=== PATIENT | male | born 1940 | race Caucasian/White ===

== ENCOUNTER → 2017-01-31 08:33 | Day surgery (SDC) | payer OTHER ==
--- NOTE | 2017-01-10 21:49 | HP ---
ADMISSION HISTORY AND PHYSICAL: DATE OF ADMISSION: 01/24/17 [facility] ATTENDING SURGEON: Dr. Jose L Giles. CHIEF COMPLAINT: Left inguinal hernia. HISTORY OF PRESENT ILLNESS: This is a 76-year-old morbidly obese male who first noted left inguinal and scrotal hernia following a laparoscopic repair of a recurrent right inguinal hernia. He states that the initial swelling postoperatively did decline somewhat, but has been present to some degree since then. It never reduces completely. He has noticed in the past 3 to 4 months some increase in swelling as well as discomfort, though nothing to suggest strangulation. He denies any change in GI or function. He has had some scrotal rash at times related to chafing, which has cleared up with over-the- counter topical agents. He was seen by Dr. Colindres for concern regarding hydrocele and was sent for an ultrasound done on 11/05/16, this showing a moderately large right hydrocele and a large fat-containing left indirect inguinal hernia. The patient has undergone previous open right inguinal herniorrhaphy with mesh in 2003 and then laparoscopic repair of recurrent right inguinal hernia in 2007. He had also undergone prior open umbilical hernia repair and subsequent repair of recurrent umbilical hernia with mesh in 2007. He met with Dr. Giles on 11/13/16, at which time exam confirmed the presence of a large inguinal scrotal hernia on the left. This was not readily reducible, but was nontender. Dr. Giles reviewed the ultrasound and discussed with him the indications for repair, the risks, benefits, and alternatives. He has since been seen by Dr. Luciano who felt that no additional cardiac workup was necessary. He does take Eliquis for a prior episode of atrial fibrillation and he will stop it 3 days prior to surgery, his last dose being on the evening of 01/21/17. There is a plan for potential future hydrocelectomy by Dr. Colindres on the right, though at this point there is no plan to do them concurrently. The patient would like to proceed as scheduled with open repair of left inguinal hernia with mesh with Dr. Giles. PAST MEDICAL HISTORY: 1. Hypertension. 2. Paroxysmal atrial fibrillation (in the setting of urosepsis; he underwent cardioversion in June 2016 and has apparently remained in sinus rhythm since, but chronically anticoagulated for the same). 3. Hyperlipidemia. 4. Morbid obesity. 5. Obstructive sleep apnea (on CPAP). 6. BPH. 7. Depression. 8. Seasonal and environmental allergies. 9. Bilateral lower extremity ulcers (currently healed), apparently related to venostasis. He is status post saphenous vein closure and sclerotherapy on the right, his most recent procedure being within the last few weeks. PREVIOUS SURGERIES: Also include tonsillectomy, pilonidal cystectomy, and the afore-mentioned hernia repairs. The patient reports no anesthesia or bleeding problems. CURRENT MEDICATIONS: 1. Vitamin B12 1000 mcg IM q.4 weeks. 2. Metoprolol succinate ER 50 mg daily. 3. Eliquis 5 mg b.i.d. (to be stopped preoperatively, last dose being the evening of 01/21/17; to be resumed postoperatively at Dr. Giles's directive). 4. Escitalopram 10 mg once daily. 5. Magnesium oxide 400 mg daily. 6. Finasteride 5 mg daily. 7. Probiotic 1 tablet once daily p.r.n. 8. Furosemide 40 mg 1/2 tablet every other day. 9. Klor-Con 10 mEq 2 tablets with Lasix every other day. 10. ProAir HFA 2 puffs every 4 hours as needed (has not used recently). 11. Symbicort 2 puffs b.i.d. (uses as needed and has not required lately). 12. Zyrtec 10 mg once daily p.r.n. ALLERGIES: No known drug allergies. He does list LATEX and ADHESIVE as allergies, though I did not ask him about specific reactions. FAMILY HISTORY: Negative for anesthesia problems, bleeding or clotting disorders. SOCIAL HISTORY: The patient is . 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 He denies use of tobacco. He drinks 2 to 3 alcoholic drinks per month. He denies any other substance use. REVIEW OF SYSTEMS: General: No recent constitutional symptoms or acute illnesses other than noted above. He states that his weight is stable. He has been referred to the dietitian at [facility] for weight loss. Cardiovascular: See attached from Dr. Luciano. Respiratory: Some dyspnea on exertion. No other acute problems reported. GI: No upper GI symptoms reported. No constipation, diarrhea, or blood per rectum. Last colonoscopy within the past 10 years, no interval problems reported. : He is treated for BPH. He was seen recently by Dr. Colindres. Endocrine: No diabetes though his problem list does include impaired fasting glycemia. No history of thyroid dysfunction. PHYSICAL EXAMINATION GENERAL: Well-nourished, well-developed, morbidly obese male in no acute distress. VITAL SIGNS: Height 67.5 inches, weight 268 pounds, BMI 41, blood pressure 116/ 78, pulse 78, respirations 20. HEENT: Pupils equal, round, and reactive. EOMs intact. No conjunctival pallor. Oropharynx: Teeth in good repair. Few missing teeth (he apparently has a partial upper denture, but is not currently using it). NECK: No lymphadenopathy, thyromegaly, or masses. LUNGS: Clear to auscultation. No rales or wheezes. HEART: Regular rate and rhythm. No murmur appreciated. ABDOMEN: There is notable diastasis in the upper abdomen. There are well- healed surgical scars. The abdomen is morbidly obese and therefore exam is limited. The hernia exam is per Dr. Giles as noted in the HPI and not repeated today. Soft, nontender. No palpable masses. EXTREMITIES: No edema, though detailed exam not performed. RECTAL: Not done. BACK: No spinous process or CVA tenderness. NEUROLOGICAL: Grossly intact. SKIN: Warm and dry. No suspicious rashes or lesions noted. Lower extremity is not specifically examined. IMPRESSION: Left inguinal hernia. PLAN: Open repair, left inguinal hernia, with mesh. TEQUILA VILLASENOR CC: Dr. Jose Robb; Dr. Bob Colindres; Dr. Mark Luciano at [facility] or [facility] * [id number]/[facility] #: [id number] [facility]
[~2017-01-31 08:33] MED LIST: Acetaminophen TAB* 325 MG PO PRN; Buffered Lidocaine 1% SYRIN* 3 ML/SYR SYRINGE INTRADERM ONE; Bupivacaine 0.5% W/EPI SDV* 30 ML VIAL ONE; Dexamethasone IV* 4 MG/ML 1 ML (4 MG) ONE; DiMENhydriNATE IV* 50 MG/ML VIAL IV PUSH PRN; EPHEDrine (Pressors)* 50 MG/ML VIAL ONE; Famotidine IV* 10 MG/ML 2 ML (20 mg) ONE; HYDROcodone/ACETAMIN 5-325 MG* 1 TAB ONE; Ketorolac INJ* 30 MG/ML 1 ML VIAL ONE; Levalbuterol 0.63MG/3ML NEB INH PRN; Levalbuterol 1.25MG/0.5ML NEB ONE; Lidocaine 1% INJ* 10 MG/ML 30 ML SDV ONE; Lidocaine 2% PF* 5 ML VIAL ONE; Midazolam* 1 MG/ML 2 ML VIAL (2 MG) ONE; Ondansetron INJ* 2 MG/ML VIAL IV PRN; PROCHLORPERAZINE INJ 5 MG/ML 2 ML VIAL IV PRN; Propofol* 10 MG/ML 20 ML BTL IV PUSH ONE; Rocuronium* 10 MG/ML VIAL ONE; Succinylcholine* 20 MG/ML 10 ML VIAL ONE; ceFAZolin 1 GM in Dextrose (*) 1 GM/50 ML BAG IVPB ONE; ceFAZolin 2 GM PREMIX(*) 2 GM/50 ML BAG IVPB ONE; fentaNYL* 50 MCG/ML 2 ML VIAL (100 MCG VIAL) IV PRN; fentaNYL* 50 MCG/ML 2 ML VIAL (100 MCG VIAL) ONE
[2017-01-31] MEDS: HYDROcodone/ACETAMIN 5-325 MG* 1 TAB PO PRN ×2 (12:56→13:35)
[2017-01-31 14:36] VITALS: BP 116/76
--- NOTE | 2017-02-01 01:16 | OP ---
DATE OF OPERATION: 01/31/17 [facility] DATE OF : 40 SURGEON: Jose L Giles MD MUNITIONS HANDLER SUPERVISOR: Mirtha Mason NP ANESTHESIOLOGIST: Michael Pugh MD ANESTHESIA: General anesthetic, local infiltration by the surgeon. PRE-OP DIAGNOSIS: Left inguinal hernia. POST-OP DIAGNOSIS: Left inguinal hernia. OPERATIVE PROCEDURE: Open repair of left inguinal hernia with mesh. COMPLICATIONS: There were no complications. DRAINS: No drains. PATHOLOGIC SPECIMEN: Omentum. COUNTS: Sponge and instrument counts correct. ESTIMATED BLOOD LOSS: 30 mL. DESCRIPTION OF PROCEDURE: The patient was supine in the operating table. After adequate general anesthetic, compression stockings, Jelly Hugger warmer, and intravenous antibiotics, left groin was clipped and prepped with antiseptic and draped in a sterile fashion. Local infiltrative anesthesia was administered and approximately a 10 cm incision was created, carried down through a very deep adipose layer to the external oblique, which was opened in the direction of its fibers. There was a large hernia sac going down to the scrotum and this was opened and a large amount of omentum was removed. The omentum was at least 4 to 5 cm thick and it was probably 20 x 20 cm worth of omentum down there. It was unable to reduce all of this, so a substantial portion of that was resected with cautery and ligature were appropriate. The hernia was then reduced and a cone mesh plug was placed into the internal ring, sutured there with 2-0 Polysorb. A second piece of mesh was placed over the inguinal floor, sutured at the tubercle, at the transverse abdominis and inguinal ligament. Tails were split, brought around the cord structures, and tacked down laterally. External oblique was closed over the top with 2-0 Polysorb, Mery's with 3-0 Polysorb, and skin with 4-0 Surgipro followed by a sterile dressing. He tolerated the procedure well, was awakened, and brought to Recovery in good condition. NOTE: This procedure was substantially more difficult and time consuming than usual, taking about 3 times normal. CC: Mark Luciano DO; Jose Robb MD; Bob Colindres MD * [id number]/[facility] #: [id number] [facility]
== END | disposition home or self-care (01) ==
LOC: OR 08:33
PROVIDERS: ATTEND Surgery
DX: K40.90 Unilateral inguinal hernia, without obstruction or gangrene, not specified as recurrent (principal); I10 Essential (primary) hypertension; I48.0 Paroxysmal atrial fibrillation; E78.5 Hyperlipidemia, unspecified; G47.33 Obstructive sleep apnea (adult) (pediatric); I25.2 Old myocardial infarction; E66.01 Morbid (severe) obesity due to excess calories
CPT/HCPCS: 88305; A9270-GY; C1781; J0330; J0690; J1100; J1885; J2001; J2250; J2704; J3010

== ENCOUNTER 2017-08-05 16:50 | Emergency (ER) | payer MEDICARE ==
--- NOTE | 2017-08-05 18:07 | ED ---
Skin Complaint - HPI Summary HPI Summary: 77 male presents to ED with complaints of right ankle abrasion that occurred around 4pm. Patient states he is on eliquis and was difficult to get bleeding to stop. Bleeding did stop after applying pressure. However and daughter were concerned for losing too much blood. Denies feeling lightheaded or dizzy. No other complaints. Unsure what he hit his ankle on. Very superficial abrasion , to fragile skin. No other complaints at this time. Taking anticoagulant for A Fib. Denies bruising or difficulty walking. Able to bear weight. No concern for MSK injury. 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 Associated Signs & Symptoms: Negative - Allergy/Home Medications Allergies/Adverse Reactions: Allergies Allergy/AdvReac Type Severity Reaction Status Date / Time Adhesive Tape Allergy Rash And Verified 08/05/17 16:55 Itching Latex Allergy Rash And Verified 08/05/17 16:55 Itching PMH/Surg Hx/FS Hx/Imm Hx Endocrine/Hematology History: Denies: Hx Diabetes, Hx Thyroid Disease Cardiovascular History: Reports: Other Cardiovascular Problems/Disorders - A-FIB , had cardioversion 06/19 Denies: Hx Congestive Heart Failure, Hx Hypertension Respiratory History: Reports: Hx Sleep Apnea Denies: Hx Asthma, Hx Chronic Obstructive Pulmonary Disease (COPD) GI History: Reports: Hx Hiatal Hernia - unsure, not diagnosed Denies: Hx Ulcer History: Reports: Other Problems/Disorders - has had severe kidney infections in the past, last one was spring 2015 Denies: Hx Renal Disease Musculoskeletal History: Reports: Other Musculoskeletal History - C5-6 issue Denies: Hx Arthritis, Hx Osteoporosis Sensory History: Reports: Hx Contacts or Glasses - wears bi-focal Denies: Hx Hearing Aid Opthamlomology History: Reports: Hx Contacts or Glasses - wears bi-focal - Surgical History Surgery Procedure, Year, and Place: Right inguinal hernia 2004,also umbilical repaired x 2,tonsillectomy 1947, excision cyst from base of spine 1957 Hx Anesthesia Reactions: No Infectious Disease History: No Infectious Disease History: Denies: Hx Hepatitis, Hx Human Immunodeficiency Virus (HIV), Traveled Outside the [place] in Last 30 Days - Family History Known Family History: Positive: None - Social History Alcohol Use: Rare Substance Use Type: Reports: None Smoking Status (MU): Never Smoked Tobacco Review of Systems Constitutional: Negative Cardiovascular: Negative Respiratory: Negative Musculoskeletal: Negative Positive: Other - abrasion right ankle All Other Systems Reviewed And Are Negative: Yes Physical Exam Triage Information Reviewed: Yes Vital Signs On Initial Exam: Initial Vitals Temp Pulse Resp BP Pulse Ox 98.1 F 101 18 122/84 97 08/05/17 16:55 08/05/17 16:55 08/05/17 16:55 08/05/17 16:55 08/05/17 16:55 Vital Signs Reviewed: Yes Appearance: Positive: Well-Appearing, No Pain Distress, Well-Nourished Skin: Positive: Warm, Skin Color Reflects Adequate Perfusion, Dry, Other - small .5cm linear superficial epidermal abrasion without bleeding or foreign body noted to medial right ankle/lower leg. rest of skin exam normal without ecchymosis or edema. venous insufficiency noted b/l lower legs, chronic. Negative: Cold, Numb, Cyanosis @, Erythema @ Head/Face: Positive: Normal Head/Face Inspection Eyes: Positive: Conjunctiva Clear ENT: Positive: Hearing grossly normal Neck: Positive: Supple, Nontender Respiratory/Lung Sounds: Positive: Clear to Auscultation, Breath Sounds Present. Negative: Rales, Rhonchi, Wheezes Cardiovascular: Positive: Normal, RRR, Pulses are Symmetrical in both Upper and Lower Extremities - 2+ pedal b/l. Negative: Murmur, Rub Musculoskeletal: Positive: Normal, Strength/ROM Intact Neurological: Positive: Normal, Sensory/Motor Intact, Alert, Oriented to Person Place, Time, NV Bundle Intact Distally, Normal Gait Psychiatric: Positive: Affect/Mood Appropriate - Otho Coma Scale Best Eye Response: 4 - Spontaneous Best Motor Response: 6 - Obeys Commands Best Verbal Response: 5 - Oriented Coma Scale Total: 15 Diagnostics - Vital Signs Vital Signs Temp Pulse Resp BP Pulse Ox 08/05/17 16:55 98.1 F 101 18 122/84 97 - Laboratory Lab Statement: Any lab studies that have been ordered have been reviewed, and results considered in the medical decision making process. Course/Dx - Course Course Of Treatment: abrasions were not currently bleeding while in ED. pressure dressing applied with coband and telfa. no other concerns at this time. asymptomatic and normal vitals. aware of worsening signs and symptoms. continue pressure dressing for 24 hours. triple anitbioitic ointment, keep clean and dry. follow up pcp. - Differential Diagnoses - Skin Complaint Differential Diagnoses: Cellulitis, Contact Dermatitis, Other - abrasion, laceration, contusion - Diagnoses Provider Diagnoses: Abrasion of right ankle Discharge - Discharge Plan Condition: Stable Disposition: HOME Patient Education Materials: Abrasion (ED) Referrals: Jose Robb MD [Primary Care Provider] - Additional Instructions: Keep pressure dressing applied for 24 hours. Then apply triple antibiotic ointment and re-dress if desired. If re-bleeds, apply pressure. Keep clean and dry. Return if any complications. Follow up with PCP.
[2017-08-05 18:22] VITALS: BP 119/86
== END 2017-08-05 18:25 | disposition home or self-care (01) ==
LOC: ED 16:50
DX: S90.511A Abrasion, right ankle, initial encounter (principal); I48.91 Unspecified atrial fibrillation; G47.30 Sleep apnea, unspecified; W22.8XXA Striking against or struck by other objects, initial encounter; Y92.9 Unspecified place or not applicable; Z79.01 Long term (current) use of anticoagulants
CPT/HCPCS: 99281

== ENCOUNTER 2017-11-02 07:12 | Emergency (ER) | payer MEDICARE ==
[2017-11-02 08:30] LABS: ABS Basophils 0 10^3/ul (0-0.2); ABS Eosinophils 0.1 10^3/ul (0-0.6); ABS Lymphocytes 1.5 10^3/ul (1.0-4.8); ABS Monocytes 0.6 10^3/ul (0-0.8); ABS Neutrophils 5.1 10^3/ul (1.5-7.7); ABS Nucleated RBC 0 10^3/ul; Eosinophil % 0.9 % (0-6); Hematocrit 38 % (42-52); Hemoglobin 12.8 g/dl (14.0-18.0); Lymphocyte % 20.5 % (25-47); Mean Corpuscular HGB Conc 34 g/dl (31-36); Mean Corpuscular Hemoglobin 28 pg (27-31); Mean Corpuscular Volume 83 fL (80-94); Mean Platelet Volume 9 um3 (7.4-10.4); Nucleated Red Blood Cells % 0.1; Platelet Count 185 10^3/ul (150-450); Red Blood Count 4.59 10^6/ul (4.0-5.4); Red Cell Distribution Width 16 % (10.5-15); White Blood Count 7.3 10^3/ul (3.5-10.8)
[2017-11-02 08:38] LABS: INR 1.03 (0.77-1.02)
[2017-11-02 10:54] VITALS: BP 131/76
--- NOTE | 2017-11-02 18:21 | ED ---
Jacek Mcgraw Natalie, scribed for Hilton Jeffries MD on 11/02/17 at 0824 . Lower Extremity - HPI Summary HPI Summary: The pt is a 77 y/o M presenting to the ED c/o right ankle bleeding starting last night. The pt states he has been on Eliquis for a year and had drank beer last night, causing the wound to continuously bleed. The bleeding has been resolved since presenting to the ED. [facility]. The pt has had similar episodes in the past few years. He has hx of Afib and has cardioversion in the past. - History of Current Complaint Chief Complaint: EDExtremityLower Stated Complaint: CONTROLLED BLEEDING Time Seen by Provider: 11/02/17 07:53 Hx Obtained From: Patient Onset of Pain: Hours - started last night Onset/Duration: Resolved Severity Initially: Mild Severity Currently: None Pain Intensity: 0 Pain Scale Used: 0-10 Numeric Timing: Lasting Hours Location: Other - right ankle Aggravating Factor(s): Nothing Alleviating Factor(s): Nothing - Allergies/Home Medications Allergies/Adverse Reactions: Allergies Allergy/AdvReac Type Severity Reaction Status Date / Time Adhesive Tape Allergy Rash And Verified 11/02/17 07:34 Itching Latex Allergy Rash And Verified 11/02/17 07:34 Itching PMH/Surg Hx/FS Hx/Imm Hx Previously Healthy: No Endocrine/Hematology History: Denies: Hx Diabetes, Hx Thyroid Disease Cardiovascular History: Reports: Other Cardiovascular Problems/Disorders - A-FIB , had cardioversion 06/19 Denies: Hx Congestive Heart Failure, Hx Hypertension Respiratory History: Reports: Hx Sleep Apnea Denies: Hx Asthma, Hx Chronic Obstructive Pulmonary Disease (COPD) GI History: Reports: Hx Hiatal Hernia - unsure, not diagnosed Denies: Hx Ulcer History: Reports: Other Problems/Disorders - has had severe kidney infections in the past, last one was spring 2015 Denies: Hx Renal Disease Musculoskeletal History: Reports: Other Musculoskeletal History - C5-6 issue Denies: Hx Arthritis, Hx Osteoporosis Sensory History: Reports: Hx Contacts or Glasses - wears bi-focal Denies: Hx Hearing Aid Opthamlomology History: Reports: Hx Contacts or Glasses - wears bi-focal - Surgical History Surgery Procedure, Year, and Place: Right inguinal hernia 2004,also umbilical repaired x 2,tonsillectomy 1947, excision cyst from base of spine 1956 Hx Anesthesia Reactions: No Infectious Disease History: No Infectious Disease History: Denies: Hx Hepatitis, Hx Human Immunodeficiency Virus (HIV), Traveled Outside the [place] in Last 30 Days - Family History Known Family History: Positive: Hypertension, Diabetes Negative: Cardiac Disease - Social History Alcohol Use: Rare Alcohol Amount: 2 beers last night Substance Use Type: Reports: None Smoking Status (MU): Never Smoked Tobacco Review of Systems Negative: Fever Positive: Other - right ankle bleeding All Other Systems Reviewed And Are Negative: Yes Physical Exam - Summary Physical Exam Summary: Appearance: The patient is well-nourished in no acute distress and in no acute pain. Skin: The skin is warm and dry and skin color reflects adequate perfusion. HEENT: The head is normocephalic and atraumatic. The pupils are equal and reactive. The conjunctivae are clear and without drainage. Nares are patent and without drainage. Mouth reveals moist mucous membranes and the throat is without erythema and exudate. The external ears are intact. The ear canals are patent and without drainage. The tympanic membranes are intact. Neck: The neck is supple with full range of motion and non-tender. There are no carotid bruits. There is no neck vein distension. Respiratory: Chest is non-tender. Lungs are clear to auscultation and breath sounds are symmetrical and equal. Cardiovascular: Heart is regular rate and rhythm. There is no murmur or rub auscultated. There is no peripheral edema and pulses are symmetrical and equal. Abdomen: The abdomen is soft and non-tender. There are normal bowel sounds heard in all four quadrants and there is no organomegaly palpated. Musculoskeletal: There is no back tenderness noted. There is no or calf tenderness elicited. Chronic blood stasis changes in BLE. Edema in BLE. There is an open clean ulcer in right medial ankle with small area of bleeding clotted off. Neurological: Patient is alert and oriented to person, place and time. The patient has symmetrical motor strength in all four extremities. Cranial nerves are grossly intact. Deep tendon reflexes are symmetrical and equal in all four extremities. Psychiatric: The patient has an appropriate affect and does not exhibit any anxiety or depression. Triage Information Reviewed: Yes Vital Signs On Initial Exam: Initial Vitals Temp Pulse Resp BP Pulse Ox 97.1 F 101 22 97/67 97 11/02/17 07:16 11/02/17 07:16 11/02/17 07:16 11/02/17 07:16 11/02/17 07:16 Vital Signs Reviewed: Yes - [place] Coma Scale Coma Scale Total: 15 Diagnostics - Vital Signs Vital Signs Temp Pulse Resp BP Pulse Ox 11/02/17 07:32 89 24 116/75 97 11/02/17 07:30 94 20 79/65 98 11/02/17 07:28 90 24 71/40 98 11/02/17 07:19 94 22 98 11/02/17 07:17 97/67 11/02/17 07:16 97.1 F 101 22 97 - Laboratory Lab Results: Lab Results 11/02/17 11/02/17 11/02/17 Range/Units 08:17 08:17 08:17 WBC 7.3 (3.5-10.8) 10^3/ul RBC 4.59 (4.0-5.4) 10^6/ul Hgb 12.8 L (14.0-18.0) g/dl Hct 38 L (42-52) % MCV 83 (80-94) fL MCH 28 (27-31) pg MCHC 34 (31-36) g/dl RDW 16 H (10.5-15) % Plt Count 185 (150-450) 10^3/ul MPV 9 (7.4-10.4) um3 Neut % (Auto) 69.5 (38-83) % Lymph % (Auto) 20.5 L (25-47) % Baker % (Auto) 8.5 (1-9) % Eos % (Auto) 0.9 (0-6) % Baso % (Auto) 0.6 (0-2) % Absolute Neuts (auto) 5.1 (1.5-7.7) 10^3/ul Absolute Lymphs (auto) 1.5 (1.0-4.8) 10^3/ul Absolute Monos (auto) 0.6 (0-0.8) 10^3/ul Absolute Eos (auto) 0.1 (0-0.6) 10^3/ul Absolute Basos (auto) 0 (0-0.2) 10^3/ul Absolute Nucleated RBC 0 10^3/ul Nucleated RBC % 0.1 INR (Anticoag Therapy) 1.03 H (0.77-1.02) APTT 27.8 (26.0-36.3) seconds Sodium 140 (133-145) mmol/L Potassium 4.4 (3.5-5.0) mmol/L Chloride 107 (101-111) mmol/L Carbon Dioxide 27 (22-32) mmol/L Anion Gap 6 (2-11) mmol/L BUN 25 H (6-24) mg/dL Creatinine 1.03 (0.67-1.17) mg/dL Est GFR ( Amer) 90.1 (>60) Est GFR (Non-Af Amer) 70.0 (>60) BUN/Creatinine Ratio 24.3 H (8-20) Glucose 114 H (70-100) mg/dL Calcium 9.2 (8.6-10.3) mg/dL Total Bilirubin 0.40 (0.2-1.0) mg/dL AST 16 (13-39) U/L ALT 16 (7-52) U/L Alkaline Phosphatase 57 (34-104) U/L Total Protein 5.9 L (6.4-8.9) g/dL Albumin 3.2 (3.2-5.2) g/dL Globulin 2.7 (2-4) g/dL Albumin/Globulin Ratio 1.2 (1-3) Result Diagrams: 11/02/17 08:17 12 08:17 Lab Statement: Any lab studies that have been ordered have been reviewed, and results considered in the medical decision making process. - EKG 08:15 Cardiac Rate: NL EKG Rhythm: Atrial Fibrillation - 95 BPM EKG Interpretation: Atrial fib with controlled response. Lower Extremity Course/Dx - Course Course Of Treatment: Mr. Pereira presented after bleeding from his right ankle all night. He has dropped his H&H a little but has had no further bleeding here. I will let him go to F/U with his [facility]. He is on Elliquis for A-Fib and is in A-Fib now. He is not awater of being in A-Fib and will F.U with Dr. Gonzalez for that. - Diagnoses Provider Diagnoses: Bleeding from wound, Atrial fibrillation Discharge - Discharge Plan Condition: Stable Disposition: HOME Referrals: Jose Robb MD [Primary Care Provider] - Mark Luciano DO [Medical Doctor] - 1 Week Additional Instructions: [facility] up with [facility] on [facility]17 as scheduled. Follow up with political analyst Dr. Luciano, next week. Return to the Emergency Department for any new or worsening symptoms. The documentation as recorded by the Jacek ayala Natalie accurately reflects the service I personally performed and the decisions made by , Hilton Jeffries MD.
== END 2017-11-02 10:53 | disposition home or self-care (01) ==
LOC: ED 07:12
DX: I48.91 Unspecified atrial fibrillation (principal); S91.011A Laceration without foreign body, right ankle, initial encounter; X58.XXXA Exposure to other specified factors, initial encounter; Y93.9 Activity, unspecified; Y92.9 Unspecified place or not applicable
CPT/HCPCS: 36415; 80053; 85025; 85610; 85730; 93005; 99283

== ENCOUNTER → 2017-12-09 08:31 | Day surgery (SDC) | payer MEDICARE ==
[~2017-12-09 08:31] MED LIST changes: -Acetaminophen TAB* 325 MG PO PRN; -Buffered Lidocaine 1% SYRIN* 3 ML/SYR SYRINGE INTRADERM ONE; -Bupivacaine 0.5% W/EPI SDV* 30 ML VIAL ONE; -Dexamethasone IV* 4 MG/ML 1 ML (4 MG) ONE; -DiMENhydriNATE IV* 50 MG/ML VIAL IV PUSH PRN; -EPHEDrine (Pressors)* 50 MG/ML VIAL ONE; -Famotidine IV* 10 MG/ML 2 ML (20 mg) ONE; +Flumazenil* 0.1 MG/ML 5 ML MDV ONE; -HYDROcodone/ACETAMIN 5-325 MG* 1 TAB ONE; -Ketorolac INJ* 30 MG/ML 1 ML VIAL ONE; -Levalbuterol 0.63MG/3ML NEB INH PRN; -Levalbuterol 1.25MG/0.5ML NEB ONE; -Lidocaine 1% INJ* 10 MG/ML 30 ML SDV ONE; -Lidocaine 2% PF* 5 ML VIAL ONE; +Midazolam* 1 MG/ML 10 ML VIAL (10 MG) ONE; -Midazolam* 1 MG/ML 2 ML VIAL (2 MG) ONE; +Naloxone* 0.4 MG/ML 1 ML VIAL ONE; -Ondansetron INJ* 2 MG/ML VIAL IV PRN; -PROCHLORPERAZINE INJ 5 MG/ML 2 ML VIAL IV PRN; -Propofol* 10 MG/ML 20 ML BTL IV PUSH ONE; -Rocuronium* 10 MG/ML VIAL ONE; -Succinylcholine* 20 MG/ML 10 ML VIAL ONE; -ceFAZolin 1 GM in Dextrose (*) 1 GM/50 ML BAG IVPB ONE; -ceFAZolin 2 GM PREMIX(*) 2 GM/50 ML BAG IVPB ONE; -fentaNYL* 50 MCG/ML 2 ML VIAL (100 MCG VIAL) IV PRN
[2017-12-09 09:47] LABS: EGFR Non-African American 71.6 (>60)
--- NOTE | 2017-12-09 10:51 | PROCNOTE ---
Cardiology Procedure Note 12/09/2017 External electrical cardioversion Patient with persistent symptoms of atrial fibrillation despite rate control Risks, benefits and alternatives discussed and patient wished to proceed Patient has received OAC for at least a month without interruption so RACHEL not performed 2 mg IV versed, 25 mcg IV sedation used Patient successfully cardioverted from atrial fibrillation to sinus rhythm with PVC's with 200 J external electrical cardioversion x 1 No complications No medication changes Patient will follow up with [facility] 12/09/17 09:00 Mg 1.9
== END | disposition home or self-care (01) ==
LOC: CHICATH 08:31
PROVIDERS: ATTEND Internal Medicine
DX: I48.0 Paroxysmal atrial fibrillation (principal); I49.3 Ventricular premature depolarization; R60.9 Edema, unspecified; R06.00 Dyspnea, unspecified; I71.4 Abdominal aortic aneurysm, without rupture; I10 Essential (primary) hypertension; E66.01 Morbid (severe) obesity due to excess calories; G47.33 Obstructive sleep apnea (adult) (pediatric); E78.2 Mixed hyperlipidemia; I50.9 Heart failure, unspecified
CPT/HCPCS: 36415; 80048; 83735; 92960; 93005; 99156; 99157; J2250; J2310; J3010

== ENCOUNTER 2018-10-08 06:54 | Day surgery (SDC) | payer MEDICARE ==
[~2018-10-08 06:54] MED LIST changes: +Buffered Lidocaine 0.9% SYRIN* 5 ML/SYR SYRINGE INTRADERM ONE; -Flumazenil* 0.1 MG/ML 5 ML MDV ONE; -Midazolam* 1 MG/ML 10 ML VIAL (10 MG) ONE; -Naloxone* 0.4 MG/ML 1 ML VIAL ONE; -fentaNYL* 50 MCG/ML 2 ML VIAL (100 MCG VIAL) ONE
[2018-10-08] MEDS ORDERED: Midazolam* 1 MG/ML 2 ML VIAL (2 MG) ONE (08:44)
[2018-10-08 09:07] VITALS: BP 93/77
[2018-10-08] MEDS ORDERED: Cyclopentolate 1% OPTH.SOL* 2 ML BTL ONE (09:31)
[2018-10-08] MEDS ORDERED: Povidone Iodine 5% OPTH* 30 ML BTL ONE (09:31)
[2018-10-08] MEDS ORDERED: Proparacaine 0.5% OPHTH.SOL* 15 ML BTL ONE (09:31)
[2018-10-08] MEDS ORDERED: Neomycin/Polymy/Dex OPTH.SUSP* MAXITROL 0.1% 5 ML ONE (09:31)
[2018-10-08] MEDS ORDERED: Phenylephrine 2.5% OPTH.SOL* 2 ML BTL ONE (09:31)
[2018-10-08] MEDS ORDERED: Lidocaine 1%* 5 ML VIAL ONE (09:31)
[2018-10-08] MEDS ORDERED: acetaZOLAMIDE TAB* 250 MG ONE (09:31)
[2018-10-08] MEDS ORDERED: Ketorolac 0.5% OPHTH (NF) 0.5 % 5 ML BTL ONE (09:31)
[2018-10-08] MEDS ORDERED: Lidocaine 2% EPI 1:200000 MPF*10-20 ML VIAL ONE (09:31)
--- NOTE | 2018-10-08 11:40 | OP ---
OPERATIVE NOTE: DATE OF OPERATION: 10/08/18 DATE OF : 40 SURGEON: Kalia Barkley M.D. PREOPERATIVE DIAGNOSIS: Cataract, left eye. POSTOPERATIVE DIAGNOSIS: Cataract, left eye OPERATIVE PROCEDURE: Extracapsular cataract extraction with intraocular lens implant left eye. PROCEDURE: The patient was brought to the operating room after being given 1/2% Alcaine with epineph rine drops in the preoperative area. The eye was prepped and draped in the usual sterile fashion. S terile drape and eyelid speculum were placed. Again, topical 1/2% Alcaine with epinephrine was given . A paracentesis incision was made at the 3 o'clock position with the No.75 blade. Clear cornea inc ision 2.2 x 2.2-mm was created at the 6 o'clock position starting at the anterior limbus using the 2. 2-mm keratome. The anterior chamber was irrigated with 0.4 mL of 1% non-preservative intracameral li docaine and filled with DisCoVisc. A capsulorrhexis was completed using the cystotome and the Utrata forceps. Hydrodissection was performed with balanced salt solution. The lens nucleus was removed wi th the Phacoemulsification handpiece without incident. Cortex was removed with the irrigation-aspira tion handpiece. The capsular bag was re-inflated using DisCoVisc and an SN60WF 19.5 implant was inse rted with the shooter. The irrigation-aspiration handpiece was used to remove all residual DisCoVisc . The eye was refilled with balanced salt solution and the wound checked and found to be watertight. Topical Maxitrol drops were given. [id number]/[facility] #: [id number]
== END 2018-10-08 09:11 | disposition home or self-care (01) ==
LOC: OREAST 06:54
PROVIDERS: ATTEND Specialist
DX: H25.12 Age-related nuclear cataract, left eye (principal); I48.91 Unspecified atrial fibrillation; Z79.01 Long term (current) use of anticoagulants; I10 Essential (primary) hypertension; E78.5 Hyperlipidemia, unspecified; G47.33 Obstructive sleep apnea (adult) (pediatric)
CPT/HCPCS: A9270-GY; J2250; V2632

== ENCOUNTER 2018-10-15 09:41 | Day surgery (SDC) | payer MEDICARE ==
[~2018-10-15 09:41] MED LIST changes: +Acetaminophen TAB* 325 MG PO PRN; +Cyclopentolate 1% OPTH.SOL* 2 ML BTL ONE; +Ketorolac 0.5% OPHTH (NF) 0.5 % 5 ML BTL ONE; +Lidocaine 1%* 5 ML VIAL ONE; +Lidocaine 2% EPI 1:200000 MPF*10-20 ML VIAL ONE; +Neomycin/Polymy/Dex OPTH.SUSP* MAXITROL 0.1% 5 ML ONE; +Phenylephrine 2.5% OPTH.SOL* 2 ML BTL ONE; +Povidone Iodine 5% OPTH* 30 ML BTL ONE; +Proparacaine 0.5% OPHTH.SOL* 15 ML BTL ONE; +acetaZOLAMIDE TAB* 250 MG ONE
[2018-10-15] MEDS ORDERED: Midazolam* 1 MG/ML 2 ML VIAL (2 MG) ONE ×3 (12:09→12:31)
[2018-10-15 12:21] VITALS: BP 115/65
--- NOTE | 2018-10-15 13:28 | OP ---
DATE OF OPERATION: 10/15/2018 - [facility] DATE OF : 1940. SURGEON: Kalia Barkley M.D. PREOPERATIVE DIAGNOSIS: Cataract right eye. POSTOPERATIVE DIAGNOSIS: Cataract right eye. OPERATIVE PROCEDURE: Extracapsular cataract extraction with intraocular lens implant right eye. DESCRIPTION OF PROCEDURE: The patient was brought to the operating room after being given 1/2% Alcaine with epinephrine drops in the preoperative area. The eye was prepped and draped in the usual sterile fashion. Sterile drape and eyelid speculum were placed. Again, topical 1/2% Alcaine with epinephrine was given. A paracentesis incision was made at the 9 o'clock position with the No.75 blade. Clear cornea incision 2.2 x 2.2-mm was created at the 12 o'clock position starting at the anterior limbus using the 2.2-mm keratome. The anterior chamber was irrigated with 0.4 mL of 1% non-preservative intracameral lidocaine and filled with DisCoVisc. A capsulorrhexis was completed using the cystotome and the Utrata forceps. Hydrodissection was performed with balanced salt solution. The lens nucleus was removed with the Phacoemulsification handpiece without incident. Cortex was removed with the irrigation-aspiration handpiece. The capsular bag was re-inflated using DisCoVisc and an [id number] 19 implant was inserted with the shooter. The irrigation-aspiration handpiece was used to remove all residual DisCoVisc. The eye was refilled with balanced salt solution and the wound checked and found to be watertight. Topical Maxitrol drops were given. [id number]/[facility] #: [id number] [facility] CENTERPieter
== END 2018-10-15 12:24 | disposition home or self-care (01) ==
LOC: OREAST 09:41
PROVIDERS: ATTEND Specialist
DX: Z01.818 Encounter for other preprocedural examination (principal); H25.11 Age-related nuclear cataract, right eye; H25.813 Combined forms of age-related cataract, bilateral; I10 Essential (primary) hypertension; E53.8 Deficiency of other specified B group vitamins; I48.0 Paroxysmal atrial fibrillation; Z96.1 Presence of intraocular lens
CPT/HCPCS: A9270-GY; J2250; V2632

== ENCOUNTER 2019-08-28 06:23 | Day surgery (SDC) | payer MEDICARE ==
[~2019-08-28 06:23] MED LIST changes: -Acetaminophen TAB* 325 MG PO PRN; -Buffered Lidocaine 0.9% SYRIN* 5 ML/SYR SYRINGE INTRADERM ONE; +Buffered Lidocaine 1% SYRIN* 1 ML/SYRINGE INTRADERM ONE; -Cyclopentolate 1% OPTH.SOL* 2 ML BTL ONE; -Ketorolac 0.5% OPHTH (NF) 0.5 % 5 ML BTL ONE; +Lactated Ringers 1000 ML Bag* 1,000 ML IV SCH; -Lidocaine 1%* 5 ML VIAL ONE; -Lidocaine 2% EPI 1:200000 MPF*10-20 ML VIAL ONE; -Neomycin/Polymy/Dex OPTH.SUSP* MAXITROL 0.1% 5 ML ONE; -Phenylephrine 2.5% OPTH.SOL* 2 ML BTL ONE; -Povidone Iodine 5% OPTH* 30 ML BTL ONE; -Proparacaine 0.5% OPHTH.SOL* 15 ML BTL ONE; -acetaZOLAMIDE TAB* 250 MG ONE
[2019-08-28] MEDS ORDERED: Naloxone* 0.4 MG/ML 1 ML VIAL IV PRN (07:23)
[2019-08-28] MEDS ORDERED: Lidocaine 1% INJ* 10 MG/ML 30 ML SDV ONE (07:25)
[2019-08-28] MEDS ORDERED: Propofol* 10 MG/ML 20 ML BTL ONE (07:31)
[2019-08-28] MEDS ORDERED: Lidocaine 2% PF * 5 ML VIAL ONE (07:31)
[2019-08-28] MEDS ORDERED: fentaNYL* 50 MCG/ML 2 ML VIAL (100 MCG VIAL) ONE (07:32)
[2019-08-28 08:48] VITALS: BP 110/80
--- NOTE | 2019-08-28 12:25 | OP ---
DATE OF OPERATION: 08/28/19 [facility] DATE OF : 40 SURGEON: Nadege Fonseca MD. PLANT QUALITY MANAGER: TEQUILA Khan. ANESTHESIA: Local MAC. PRE-OP DIAGNOSES: 1. Left carpal tunnel syndrome. 2. Left index and long finger trigger fingers. POST-OP DIAGNOSES: 1. Left carpal tunnel syndrome. 2. Left index and long finger trigger fingers. OPERATIVE PROCEDURES: Left carpal tunnel release, and index and middle finger trigger release. ESTIMATED BLOOD LOSS: Zero. TOURNIQUET TIME: Approximately 15 minutes. INDICATIONS FOR PROCEDURE: Markus is a 79-year-old man with triggering of his index and long fingers on the left hand as well as left carpal tunnel syndrome. He presents for release of all of the above. DESCRIPTION OF PROCEDURE: The patient was brought to the operating room, was given a sedation anesthetic and a local infiltration of 10 cc of 1% plain lidocaine in the palm of his left hand overlying the index and middle fingers in the palm of his left hand, also an additional 10 cc of 1% plain lidocaine in the palm of his hand overlying the carpal tunnel. The skin of his left hand and forearm was prepped and draped in the usual sterile fashion. The hand and forearm were exsanguinated and the tourniquet elevated to 250 mmHg. A transverse incision was made centered over the A1 pulleys of the index and middle fingers and we dissected bluntly through the subcutaneous tissue down to the pulleys. They were incised longitudinally completely releasing the flexor tendons, which were in good condition. The wound was irrigated and the skin edges reapproximated with 4-0 nylon suture. Next, a longitudinal incision was made in the palm in line with the ring finger and we dissected through the subcutaneous tissue down to the transverse carpal ligament. The ligament was divided sharply with a knife and then more proximally with the scissors. The nerve was dissected free from the surrounding tissue and there was an area of significant compression at the mid portion of the ligament. There was also abundant synovial fluid in the carpal tunnel. The wounds were copiously irrigated with saline and the skin edges were reapproximated with 4-0 nylon suture. The wounds were dressed with Xeroform, 4x4, Webril, and an Rito wrap. The patient tolerated the procedure well and was brought to the recovery room in good condition. [id number]/[facility] #: [id number] [facility]
== END 2019-08-28 08:20 | disposition home or self-care (01) ==
LOC: OREAST 06:23
PROVIDERS: ATTEND Orthopaedic Surgery
DX: G56.02 Carpal tunnel syndrome, left upper limb (principal); M65.322 Trigger finger, left index finger; M65.332 Trigger finger, left middle finger; I48.91 Unspecified atrial fibrillation; Z79.01 Long term (current) use of anticoagulants; G47.33 Obstructive sleep apnea (adult) (pediatric); E78.5 Hyperlipidemia, unspecified; Z68.38 Body mass index [BMI] 38.0-38.9, adult; I10 Essential (primary) hypertension; R60.9 Edema, unspecified
CPT/HCPCS: J2704; J3010

== ENCOUNTER 2024-09-14 12:16 | Observation (INO) ==
[2024-09-14 18:29] LABS: ABS Eosinophils 0.1 10^3/uL (0.0-0.5); ABS Lymphocytes 0.9 10^3/uL (1.0-4.8); ABS Monocytes 0.8 10^3/uL (0.0-1.1); ABS Neutrophils 6.8 10^3/uL (1.5-7.6); Eosinophil % 0.7 %; Hematocrit 36.8 % (38-53); Hemoglobin 11.9 g/dL (13.2-16.3); Lymphocyte % 10.8 %; Mean Corpuscular Hemoglobin 27.6 pg (27-33); Mean Corpuscular Hgb Conc 32.3 g/dL (31-36); Mean Corpuscular Volume 85.5 fL (80-97); Platelet Count 256 10^3/uL (150-450); Red Blood Count 4.31 10^6/uL (4.06-5.63); Red Cell Distribution Width 16.6 % (12-17); White Blood Count 8.6 10^3/uL (3.6-10.2)
[2024-09-14 19:07] LABS: Albumin 3.4 g/dL (3.2-5.2); C Reactive Protein 203.91 mg/L (<8.01); Calcium 9.3 mg/dL (8.6-10.3); Creatinine, Serum 0.9 mg/dL (0.67-1.17); Globulin 3.3 g/dL (2-4); Potassium 4.3 mmol/L (3.5-5.0); Total Bilirubin 0.8 mg/dL (0.2-1.0); Total Protein 6.7 g/dL (6.4-8.9); eGFR CKD-EPI 84.2 (>60)
[2024-09-14] MEDS: Furosemide 40 mg/4 ml IV VIAL IV SLOW PU ONE (19:37)
[2024-09-14 20:13] LABS: High Sensitivity Troponin 1 Hr 30 pg/mL (<20)
[2024-09-14] MEDS ORDERED: Vancomycin 2,000 MG in NS 0.9% 250 ml 250 ML IVPB SCH (21:00)
[2024-09-14] MEDS: Piperacillin/Tazobac 3.375 BAG 3.375 GM/100 ML BAG IV ONE (23:00)
[2024-09-15] MEDS: Vancomycin 2,000 MG in NS 0.9% 500 ml BAG 500 ML IVPB ONE (00:01)
[2024-09-15] MEDS: Iohexol 300 (CONTRAST) 10 ML SDV IV ONE (03:36)
[2024-09-15] MEDS ORDERED: Vancomycin per Pharmacy 1 EA NOTE FOLLOW UP SCH (07:00)
[2024-09-15] MEDS: metroNIDAZOLE IV 500 MG/100ML 500 MG/100 ML BAG IVPB SCH (07:41)
[2024-09-15] MEDS: Cefepime 2 GM in Dextrose 2 GM/50 ML BAG IV SCH (07:41)
[2024-09-15 10:31] LABS: ABS Eosinophils 0.1 10^3/uL (0.0-0.5); ABS Lymphocytes 1.1 10^3/uL (1.0-4.8); ABS Monocytes 0.8 10^3/uL (0.0-1.1); ABS Neutrophils 5.8 10^3/uL (1.5-7.6); Eosinophil % 0.9 %; Hematocrit 33.7 % (38-53); Hemoglobin 11.2 g/dL (13.2-16.3); Lymphocyte % 13.7 %; Mean Corpuscular Hemoglobin 28.1 pg (27-33); Mean Corpuscular Hgb Conc 33.2 g/dL (31-36); Mean Corpuscular Volume 84.6 fL (80-97); Mean Platelet Volume 7.9 fL (7.5-11.2); Nucleated Red Blood Cells % 0.1 %/100WBC (0.0-0.8); Platelet Count 232 10^3/uL (150-450); Red Blood Count 3.98 10^6/uL (4.06-5.63); Red Cell Distribution Width 16.3 % (12-17); White Blood Count 7.7 10^3/uL (3.6-10.2)
[2024-09-15 11:06] LABS: Calcium 8.8 mg/dL (8.6-10.3); Creatinine, Serum 0.99 mg/dL (0.67-1.17); Magnesium 1.8 mg/dL (1.9-2.7); Potassium 3.8 mmol/L (3.5-5.0); eGFR CKD-EPI 75.1 (>60)
[2024-09-15] MEDS: Vancomycin 1000 MG in NS 0.9% 250 ML IVPB SCH (13:54)
[2024-09-15] MEDS: Magnesium Sulfate 2 gm BAG 2 GM/50 ML BAG IVPB ONE (16:01)
[2024-09-15 16:23] LABS: Urine Appearance Clear; Urine Bilirubin Negative (Negative); Urine Blood Trace (Negative); Urine Color Yellow; Urine Glucose Negative (Negative); Urine Ketones Negative (Negative); Urine Nitrite Negative (Negative); Urine Protein Trace (Negative); Urine Urobilinogen Negative (Negative); Urine pH 5.5 (5.0-8.0)
[2024-09-15 16:30] LABS: Urine Bacteria Absent /HPF (Absent); Urine Red Blood Cell 2+(6-10/hpf) /HPF (0-Trace); Urine White Blood Cell 3+(>20/hpf) /HPF (0-Trace)
[2024-09-15] MEDS: cefTRIAXone 1 gm/50 mL D5W 1 GM/50 ML BAG IV SCH (18:38)
[2024-09-16 06:22] LABS: ABS Eosinophils 0.2 10^3/uL (0.0-0.5); ABS Lymphocytes 1.1 10^3/uL (1.0-4.8); ABS Monocytes 0.7 10^3/uL (0.0-1.1); ABS Neutrophils 4.1 10^3/uL (1.5-7.6); ABS Nucleated RBC 0.01 10^3/ul; Eosinophil % 2.7 %; Hematocrit 34.7 % (38-53); Hemoglobin 11.1 g/dL (13.2-16.3); Lymphocyte % 18.4 %; Mean Corpuscular Hemoglobin 27.2 pg (27-33); Mean Corpuscular Hgb Conc 31.9 g/dL (31-36); Nucleated Red Blood Cells % 0.1 %/100WBC (0.0-0.8); Platelet Count 231 10^3/uL (150-450); Red Blood Count 4.08 10^6/uL (4.06-5.63); Red Cell Distribution Width 16.3 % (12-17); White Blood Count 6.2 10^3/uL (3.6-10.2)
[2024-09-16 06:37] LABS: Calcium 8.8 mg/dL (8.6-10.3); Creatinine, Serum 0.86 mg/dL (0.67-1.17); eGFR CKD-EPI 85.4 (>60)
[2024-09-16 11:30] VITALS: BP 101/62
== END 2024-09-16 15:14 | disposition home or self-care (01) ==
LOC: ED 12:16 → EDHOLD 12:16 → MEDTELE 09-15 08:03
PROVIDERS: ADMIT Internal Medicine; ATTEND Internal Medicine